=== PATIENT | female | born 1980 | race Two or more races ===

== ENCOUNTER 2021-07-27 16:49 | Outpatient (CLI) | payer OTHER ==
[~2021-07-27 16:49] MED LIST: IOPHEN DM-100 MG/5 M PO; LEVAQUIN500 MG PO; ZITHROMAX500 MG PO
== END 2021-07-27 17:02 | disposition home or self-care (01) ==
LOC: LAB 16:49 → RAD 16:49
PROVIDERS: ATTEND Family Medicine
DX: S93.401A Sprain of unspecified ligament of right ankle, initial encounter (principal)

== ENCOUNTER 2021-10-13 09:37 | Outpatient (CLI) | payer OTHER | END 2021-10-13 09:48 | disposition home or self-care (01) | LOC: SONOGRAMA 09:37 | PROVIDERS: ATTEND Family Medicine | DX: N95.8 Other specified menopausal and perimenopausal disorders (principal); R10.2 Pelvic and perineal pain ==

== ENCOUNTER 2022-06-11 13:58 | Outpatient (CLI) | payer OTHER | END 2022-06-11 14:18 | disposition home or self-care (01) | LOC: MAMO-SONO 13:58 | PROVIDERS: ATTEND Family Medicine | DX: Z12.31 Encounter for screening mammogram for malignant neoplasm of breast (principal); N64.4 Mastodynia ==

== ENCOUNTER 2022-12-27 14:48 | Outpatient (CLI) | payer OTHER | END 2022-12-27 15:00 | disposition home or self-care (01) | LOC: SONOGRAMA 14:48 | PROVIDERS: ATTEND Family Medicine | DX: E28.8 Other ovarian dysfunction (principal); R10.2 Pelvic and perineal pain ==

== ENCOUNTER → 2025-02-18 | Emergency (ER) | payer OTHER ==
[~2025-02-18] VITALS: Ht 154.9 cm; Wt 48.1 kg
[~2025-02-18] MED LIST changes: +ACETAMINOPHEN 500 MG GEL..CAP PO ONE; +IRON325 MG PO; +KETOROLAC TROMETHAMINE 30 MG VIAL IV STA; +KETOROLAC TROMETHAMINE 30 MG VIAL ONE; +MORPHINE SULFATE 4 MG/ML CARTRIDGE IV ONE; +MORPHINE SULFATE 4 MG/ML VIAL IV STA; +RINGERS SOLUTION,LACTATED 1,000 ML IV ONE; +SYNTHROID75 MCG PO
[2025-02-18 04:41] LABS: HEMATOCRIT 36.3 % (36.0-45.00); HEMOGLOBIN 12.5 g/dL (12.0-15.00); MEAN CELL VOLUME 92.4 fL (80.00-100.00); MEAN CORPUSCULAR HEMOGLOBIN 31.7 pg (27.00-32.0); MEAN CORPUSCULAR HGB CONC 34.4 g/dl (32.0-36.0); PLATELET COUNT 204 K/uL (150-450); RED BLOOD COUNT 3.93 M/uL (4.00-6.00)
[2025-02-18 04:46] LABS: URINE APPEARANCE Turbid; URINE BILIRRUBIN Negative (NEGATIVE); URINE BLOOD Large; URINE COLOR Orange; URINE GLUCOSE Negative (NEGATIVE); URINE KETONE Negative (NEGATIVE); URINE LEUKOCYTE Small; URINE NITRATE Negative; URINE PROTEIN 30 (NEGATIVE)
[2025-02-18 04:50] LABS: URINE BACTERIA 165.2 uL (0.0-1933); URINE WBC 13.9 uL (0.0-23.2)
[2025-02-18 04:51] LABS: URINE CAST 0.55 uL (0.0-1.40); URINE RBC > 10558.9 uL (0.0-20.8)
[2025-02-18 04:52] LABS: URINE CRYSTALS FEW /HPF
[2025-02-18 04:55] LABS: INR 0.97; PROTHROMBIN TIME 10.6 SECONDS (9.0-11.5)
[2025-02-18 05:07] LABS: CALCIUM 9.2 mg/dL (8.5-10.1); CREATININE SERUM 0.83 mg/dL (0.55-1.02); GFR 75.39; POTASSIUM 3.61 mEq/L (3.5-5.1)
== END | disposition home or self-care (01) ==
LOC: ER 03:00
PROVIDERS: General Practice
DX: O20.8 Other hemorrhage in early pregnancy (principal); Z3A.08 8 weeks gestation of pregnancy

== ENCOUNTER 2025-02-19 04:50 | Inpatient (IN) | payer OTHER ==
[~2025-02-19] VITALS: Ht 152.4 cm; Wt 48.1 kg
[~2025-02-19 04:50] MED LIST changes: -ACETAMINOPHEN 500 MG GEL..CAP PO ONE; -IRON325 MG PO; -KETOROLAC TROMETHAMINE 30 MG VIAL IV STA; -KETOROLAC TROMETHAMINE 30 MG VIAL ONE; -MORPHINE SULFATE 4 MG/ML CARTRIDGE IV ONE; -MORPHINE SULFATE 4 MG/ML VIAL IV STA; -RINGERS SOLUTION,LACTATED 1,000 ML IV ONE
[2025-02-19] MEDS ORDERED: MORPHINE SULFATE 4 MG/ML VIAL IV STA (05:26)
[2025-02-19] MEDS ORDERED: 0.9 % SODIUM CHLORIDE 1,000 ML IV STA (05:26)
[2025-02-19 06:14] LABS: HEMATOCRIT 33.1 % (36.0-45.00); HEMOGLOBIN 11.5 g/dL (12.0-15.00); MEAN CELL VOLUME 92.6 fL (80.00-100.00); MEAN CORPUSCULAR HEMOGLOBIN 32.1 pg (27.00-32.0); MEAN CORPUSCULAR HGB CONC 34.7 g/dl (32.0-36.0); PLATELET COUNT 190 K/uL (150-450); RED BLOOD COUNT 3.57 M/uL (4.00-6.00); RED CELL DISTRIBUTION WIDTH 13.1 % (11.5-14.5)
[2025-02-19 06:25] LABS: INR 0.95; PARTIAL THROMBOPLASTIN TIME 26.4 SECONDS (22.0-34.0); PROTHROMBIN TIME 10.4 SECONDS (9.0-11.5)
[2025-02-19 06:53] LABS: ALBUMIN 3.8 gm/dL (3.4-5.0); BILIRUBIN TOTAL 0.21 mg/dL (0.3-1.2); CALCIUM 9.3 mg/dL (8.5-10.1); CREATININE SERUM 0.81 mg/dL (0.55-1.02); GFR 77.54; GLOBULINA 3.3 G/DL (2.4-3.5); POTASSIUM 4.1 mEq/L (3.5-5.1); TOTAL PROTEIN 7.1 gm/dL (6.4-8.2)
[2025-02-19] MEDS ORDERED: MORPHINE SULFATE 4 MG/ML CARTRIDGE IV ONE (11:30)
[2025-02-19] MEDS ORDERED: MORPHINE SULFATE 4 MG/ML VIAL IV ONE (12:15)
[2025-02-19] MEDS ORDERED: KETOROLAC TROMETHAMINE 30 MG VIAL IV ONE (13:45)
[2025-02-19] MEDS ORDERED: KETOROLAC TROMETHAMINE 30 MG VIAL ONE (14:01)
[2025-02-19] MEDS ORDERED: FAMOTIDINE/PF 20 MG in 0.9 % SODIUM CHLORIDE 8 ML IV PUSH SCH (20:57)
[2025-02-19] MEDS ORDERED: ONDANSETRON HCL 4 MG in 0.9 % SODIUM CHLORIDE 50 ML IV PRN (21:00)
[2025-02-19] MEDS ORDERED: 0.9 % SODIUM CHLORIDE 1,000 ML IV SCH (21:00)
[2025-02-19] MEDS ORDERED: KETOROLAC TROMETHAMINE 15 MG VIAL IV PRN (21:00)
[2025-02-19] MEDS ORDERED: ACETAMINOPHEN 500 MG GEL..CAP PO PRN (21:00)
[2025-02-19 23:15] LABS: INR 1.02; PARTIAL THROMBOPLASTIN TIME 29.5 SECONDS (22.0-34.0); PROTHROMBIN TIME 11.1 SECONDS (9.0-11.5)
[2025-02-20 01:43] VITALS: BP 90/59
[2025-02-20 02:58] LABS: PH,URINE 6.5 (5.0-8.0); URINE APPEARANCE Clear; URINE BILIRRUBIN Negative (NEGATIVE); URINE BLOOD Large; URINE COLOR Yellow; URINE GLUCOSE Negative (NEGATIVE); URINE KETONE Negative (NEGATIVE); URINE LEUKOCYTE Negative; URINE NITRATE Negative; URINE PROTEIN Negative (NEGATIVE); URINE UROBILINOGEN 0.2 E.U./dl
[2025-02-20 03:04] LABS: URINE BACTERIA 9.7 uL (0.0-1933); URINE EPITHELIAL CELLS 1.7 uL (0.0-38.8); URINE RBC 534.7 uL (0.0-20.8); URINE WBC 9.1 uL (0.0-23.2)
[2025-02-20] MEDS ORDERED: LEVOTHYROXINE SODIUM 25 MCG TABLET PO SCH (06:00)
[2025-02-20 07:21] LABS: HEMATOCRIT 29.9 % (36.0-45.00); HEMOGLOBIN 10.3 g/dL (12.0-15.00); MEAN CELL VOLUME 93.3 fL (80.00-100.00); MEAN CORPUSCULAR HGB CONC 34.3 g/dl (32.0-36.0); PLATELET COUNT 169 K/uL (150-450); RED BLOOD COUNT 3.21 M/uL (4.00-6.00); RED CELL DISTRIBUTION WIDTH 13.1 % (11.5-14.5)
[2025-02-20 07:47] VITALS: BP 98/65
[2025-02-20] MEDS ORDERED: KETOROLAC TROMETHAMINE 30 MG VIAL ONE (08:44)
[2025-02-20 12:45] VITALS: BP 102/69; O2SAT 98
[2025-02-20] MEDS ORDERED: IRON325 MG PO (12:49)
== END 2025-02-20 13:27 | disposition home or self-care (01) | DRG 779 ==
LOC: ER → OB/GYN 20:59
PROVIDERS: General Practice; ADMIT Student in an Organized Health Care Education/Training Program; ATTEND Student in an Organized Health Care Education/Training Program
PROC: BU4CZZZ Ultrasonography of Uterus and Ovaries (ICD-10-PCS; principal; 2025-02-19)
PROC: BU4CZZZ Ultrasonography of Uterus and Ovaries (ICD-10-PCS; 2025-02-20)
DX: O03.4 Incomplete spontaneous abortion without complication (principal); O03.1 Delayed or excessive hemorrhage following incomplete spontaneous abortion; O03.39 Incomplete spontaneous abortion with other complications